=== PATIENT | female | born 1940 | race Caucasian/White ===

== ENCOUNTER → 2016-07-22 | Outpatient (REF) | payer MEDICARE ==
[~2016-07-22] MED LIST: HYDR-3702 PO; IBUP-793 PO
[2016-07-22 11:41] LABS: BASOPHILS % (AUTO) 0 % (0-2); EOSINOPHILS # (AUTO) 0.1 10^3uL; EOSINOPHILS % (AUTO) 1 % (0-4); LYMPHOCYTES # (AUTO) 1.9 X10^3; MEAN CORPUSCULAR HEMOGLOBIN 30.1 PG (26.0-34.0); MEAN CORPUSCULAR HGB CONC 32.6 g/dL (31.0-37.0); MEAN CORPUSCULAR VOLUME 92 FL (80-100); MEAN PLATELET VOLUME 11.9 FL (6.0-9.5); MONOCYTES # (AUTO) 0.7 X10^3; MONOCYTES % (AUTO) 7 % (3-11); NEUTROPHILS # (AUTO) 6.9 X10^3; NEUTROPHILS % (AUTO) 72 % (51-67); PLATELET COUNT 239 10^3uL (150-450)
[2016-07-22 11:49] LABS: BILIRUBIN,URINE Negative (Negative); CLARITY,URINE Clear; COLOR,URINE Yellow; GLUCOSE, URINE (UA) Negative (Negative); LEUKOCYTE ESTERASE ,URINE Negative (Negative); UROBILINOGEN,URINE 0.2 mg/dL (0.2-1.0)
[2016-07-22 11:50] LABS: ALBUMIN 4.3 g/dL (3.4-5.0); ANION GAP 13.3 MEQ/L (3-15); TOTAL PROTEIN 7.6 g/dL (6.4-8.5)
== END ==
LOC: LAB 11:17
PROVIDERS: ATTEND Family Medicine
DX: G25.0 Essential tremor (principal); E78.4 Other hyperlipidemia; E03.8 Other specified hypothyroidism; E11.9 Type 2 diabetes mellitus without complications
CPT/HCPCS: 80053; 80061; 81003; 83036; 84443; 85025